=== PATIENT | female | born 1965 | race African-American/Black ===

== ENCOUNTER 2022-06-19 12:56 | Emergency (ER) | payer MEDICAID ==
[~2022-06-19] VITALS: Ht 152.4 cm; Wt 51.4 kg
[2022-06-19] MEDS ORDERED: LISI-894 PO (13:40)
[2022-06-19] MEDS ORDERED: AMLO-258 PO ×2 (13:40→20:02)
[2022-06-19] MEDS ORDERED: LABETALOL HCL 5 MG/ML 20 ML VIAL IVP ONE ×2 (15:15→18:30)
[2022-06-19] MEDS ORDERED: AmLODIPine BESYLATE 10 MG TABLET PO ONE (15:15)
[2022-06-19 15:25] LABS: BASOPHILS % (AUTO) 0.4 % (0.0-2.0); EOSINOPHILS % (AUTO) 1.9 % (1.0-6.0); HEMATOCRIT 36.9 % (36-46); HEMOGLOBIN 12.4 g/dL (12.0-16.0); LYMPHOCYTES % (AUTO) 41.9 % (22.0-44.0); MEAN CORPUSCULAR HEMOGLOBIN 29.3 pg (26.0-34.0); MEAN CORPUSCULAR HGB CONC 33.7 G/dL (31.0-37.0); MEAN CORPUSCULAR VOLUME 87 fL (80-100); MONOCYTES # (AUTO) 0.5 K/uL (0.1-1.0); MONOCYTES % (AUTO) 6.9 % (2.0-9.0); NEUTROPHILS # (AUTO) 3.5 K/uL (1.8-7.7); NEUTROPHILS % (AUTO) 48.9 % (40.0-70.0); PLATELET COUNT (AUTO) 204 K/uL (150-450); RED BLOOD CELL COUNT(AUTO) 4.24 MIL/uL (4.00-5.20); RED CELL DISTRIBUTION WIDTH 14.3 % (11.5-14.5)
[2022-06-19 15:34] LABS: CALCIUM, TOTAL 9.4 mg/dL (8.8-10.5); CREATININE 1.52 mg/dL (0.60-1.30); POTASSIUM 4.1 mmol/L (3.5-5.1)
[2022-06-19 15:40] LABS: ALBUMIN 3.3 g/dL (3.4-5.0); BILIRUBIN,TOTAL 0.6 mg/dL (0.1-1.0); TOTAL PROTEIN, SERUM 6.7 g/dL (6.4-8.2)
[2022-06-19] MEDS ORDERED: LISINOPRIL 10 MG TABLET PO ONE (18:30)
[2022-06-19 18:54] VITALS: BP 180/107
[2022-06-19] MEDS ORDERED: LISI-662 PO (20:02)
== END 2022-06-19 21:41 | disposition home or self-care (01) ==
LOC: EMS 12:56
DX: I16.0 Hypertensive urgency (principal); I10 Essential (primary) hypertension; R51.9 Headache, unspecified; Z98.890 Other specified postprocedural states; F17.210 Nicotine dependence, cigarettes, uncomplicated
CPT/HCPCS: 99285; 96374; 80053; 85025; 36415; 93005; 96376; J3490